=== PATIENT | female | born 1960 | race Caucasian/White ===

== ENCOUNTER → 2017-04-04 | Outpatient (CLI) | payer OTHER ==
[~2017-04-04] VITALS: Ht 157.5 cm; Wt 81.6 kg
[~2017-04-04] MED LIST: CEFDINIR300 MG PO; FLEXERIL PO; HYDROXYZINE PAM50 MG PO; IBUPROFEN 800800 M1 PO; LASIX 20 MG TAB20 MG PO; MEDROL DOSPAK21 TA1 PO; NEURONTIN 300300 M1 PO; NITROGLYCERIN12 GM; TRAZODONE 150150 M1 PO; VENTOLIN HFA 1818 GM INH; ZANAFLEX4 MG PO
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
[2017-04-04 14:05] VITALS: BP 155/91
== END ==
LOC: PAIN 03-07 05:59
DX: M54.9 Dorsalgia, unspecified (principal); M79.1 Myalgia